=== PATIENT | female | born 1985 | race Caucasian/White ===

== ENCOUNTER → 2019-04-28 11:36 | Outpatient (CLI) | payer OTHER, SELFPAY ==
--- NOTE | 2019-04-28 11:39 | DI.US.S_ITS ---
PROCEDURE: US PELVIC COMPLETE INDICATIONS: RT ADNEXAL CYSTIC LESION ON MRI @ [facility] 04/12/19 TECHNIQUE: Real-time scanning was performed of the pelvic organs, with image documentation. Additional endovaginal scanning was necessary due to incomplete visualization of the adnexal and endometrial structures by transabdominal scanning. COMPARISON: None available at time of interpretation. FINDINGS: Transabdominal scanning: Limited scanning through the kidneys shows no hydronephrosis. No pathologic free abdominal or pelvic fluid. Endovaginal scanning: Uterus: Uterus is normal in size at 8.8 x 3.5 x 4.9 cm. The endometrium measures 4.2 mm in combined thickness. Ovaries: Normal left ovary measured 3.5 x 2.3 x 2.3 cm. Simple cyst involving the right ovary, largest measuring 4.1 x 1.6 x 2.6 cm which is simple. IMPRESSION: Simple right ovarian cysts, largest measuring up to 4.1 cm. Dictated by: Beau Ovalle [facility] Interpreted: Malina Negrete MD on 04/28/2019 at 12:47 Approved by: Malina Negrete M.D. on 04/28/2019 at 14:46
[2019-04-28 13:54] LABS: Cancer Antigen 125 < 6 U/mL (0-35)
== END ==
PROVIDERS: Visit Provider Obstetrics & Gynecology
DX: N83.291 Other ovarian cyst, right side (principal)
CPT/HCPCS: 36415; 76830; 76856; 86304

== ENCOUNTER 2019-05-23 10:34 | Day surgery (SDC) | payer OTHER, SELFPAY ==
[2019-05-23] VITALS (7 sets, daily range): BP systolic 116–135; BP diastolic 72–83; PULSE 46–77; RESP 12–18; TEMP 36.3–36.6; O2SAT 99–100; BMI 24.4
[2019-05-23] MEDS: LACTATED RINGERS 1,000 ML 100 ML IV (11:03)
--- NOTE | 2019-05-23 12:00 | PM.PREOP ---
Pre-operative Note Interval Note History & Physical reviewed/Exam performed by Physician: Yes Changes to H&P: No
--- NOTE | 2019-05-23 12:01 | PM.HP.1 ---
History of Present Illness Date Patient Seen: 05/23/19 Time Patient Seen: 12:01 Chief complaint: [id number] Narrative: Patient is a 34-year-old with a symptomatic right ovarian cyst here for a laparoscopic right ovarian cystectomy Patient History Medical History (Updated 05/12/19 @ 07:20 by Andree Lemus RN) Ovarian cyst (Acute) Surgical History (Updated 05/18/19 @ 12:38 by Andree Lemus RN) History of section (Acute) Social History household members: spouse Smoking Status: Never smoker Family & Social History Social History: household members spouse Tobacco & Substance use: Smoking Status Never smoker Meds Home Medications Medication Instructions Recorded Confirmed Type acetaminophen 500 mg tablet 1,000 mg PO Q6H PRN 05/10/19 05/12/19 History ascorbate calcium (vitamin C) 500 1 gram PO Q6H 05/10/19 05/12/19 History mg tablet buspirone 30 mg tablet 35 mg PO DIRECTED tab 05/10/19 05/23/19 History ibuprofen 800 mg tablet 800 mg PO TID 05/10/19 05/12/19 History levonorgestrel-ethinyl estradiol 1 tab PO DAILY 05/10/19 05/23/19 History 0.1 mg-20 mcg tablet omega 6-pfw-qfo-fish oil 1,000 mg 1 cap PO DAILY 05/10/19 05/12/19 History (120 mg-180 mg) capsule sertraline 50 mg tablet 50 mg PO DAILY 05/10/19 05/23/19 History terbinafine 250 mg oral each MISC 05/10/19 05/10/19 History tablet-hydroxypropyl chitosan 1 % topical kit Allergies Allergy/AdvReac Type Severity Reaction Status Date / Time No Known Drug Allergies Allergy Unverified 05/10/19 15:22 Exam Vital Signs (past 8 hours): - 05/23/19 10:48 Temperature 97.6 F Pulse Rate 46 L Respiratory Rate 16 Blood Pressure 133/72 Pulse Oximetry 100 Oxygen Delivery Method Room Air Narrative Exam Narrative: HEENT: [No thyromegaly, no anterior cervical or supraclavicular lymphadenopathy.] Lungs:[Clear to auscultation bilaterally, no wheezes.] Cardiovascular: [Regular rate and rhythm, no murmurs, rubs, or gallops]. Abdomen: [No scars. No hepatosplenomegaly. No masses palpable.] External genitalia: [Normal] Vagina: [Normal] Cervix: [Normal] Bimanual exam: 6 Week size uterus. Mobile. Rectal: [No masses]. Ultrasound: 4 cm right ovarian cyst Assessment & Plan Assessment & Plan narrative: Assessment: 34-year-old with a symptomatic right ovarian cyst Plan: Laparoscopic right ovarian cystectomy The risks, benefits, and alternatives to the procedure were explained to the patient. The risks including bleeding, infection, injury to the bowel, bladder, or ureters. She understands these risks and agrees to proceed. A full par Q was held and consent form was signed. Time Spent With Patient Time with patient: 15-24 minutes
--- NOTE | 2019-05-23 12:45 | SUR.OPER ---
Lithotomy on padded OR bed, head on pillow, arms secured on padded arm boards at <90 degrees abduction. Legs secured in padded yellow fins stirrups.
[2019-05-23] MEDS: BUPIVACAINE 0.5% W/ EPI (PF) VIAL 10 ML INJ (12:48)
--- NOTE | 2019-05-23 13:16 | PATH_ITS ---
Note [facility] Accession Number: [id number] TESTS RESULT FLAG UNITS REF RANGE LAB Clinician Provided Cytology Information No. of containers..01 ThinPrep Vial R OVARIAN CYST DIAGNOSIS: R OVARIAN CYST NEGATIVE FOR MALIGNANT CELLS. COMMENT: The cytological preparation and cell block have scattered clusters of cytolgically bland epitheliod cells in a background of blood. There are no features of a malignant neoplasm; however, a low-grade neoplasm cannot be entirely excluded. As part of routine quality supervisor, Dr. Tai has also reviewed this case and agrees with the above interpreation. Pathologist ICD10: 02 N83.201 02 Bg Marrero MD, PhD, Pathologist NPI- [id number] Musa Jewell, Newspaper Photojournalist ([facility]) 01 3 CC, PINK, CLOUDY /LCS FLAG LEGEND: L-Low Normal,H-High Normal,LL-Alert Low,HH-Alert High <-Panic Low,>-Panic High,A-Abnormal,AA-Critical Abnormal Performed at: 01 =Z [facility] [address], [place] [address] Prem Adamson MD, 02 LCL[facility] [address] [place] [id number] Hamida Tai MD, Performed at: 01 [facility] [address], [place], [place] [id number] MD Prem Adamson MD Phone: [phone]
[2019-05-23] MEDS: OXYCODONE/ACETAMINOPHEN 5/325 TABLET 1 TAB PO (13:32)
--- NOTE | 2019-05-23 14:00 | SUR.PHASEII ---
Assumed care, patient stable, denies pain/nausea. Tolerating PO well. Waiting for mother to return w/medication. IV site WNL.
--- NOTE | 2019-05-23 14:34 | SUR.PHASEII ---
1422 Stable for discharge, no questions, no pain/nausea; Stable on feet. Resp unlabored, Skin warm and dry.
--- NOTE | 2019-05-30 05:48 | PM.GYNOP.1 ---
Operative Date/Time/Diagnoses Date of procedure: 05/23/19 Time of procedure: 13:00 Pre-op diagnosis: Persistent right ovarian cyst Pelvic pain Post-op diagnosis: same Procedure: Procedures Operation Date: 05/23/19 11:45 Actual Procedures Side Surgeon p Laparoscopic Lysis of adhesions; aspiration of right ovarian cyst Right Jacqui Gallagher MD Indications: Persistent right ovarian cyst Pelvic Surgeon: Jacqui Gallagher Anesthesia Type: General Operative Notes Findings: Bladder to uterine adhesions Uterus to anterior abdominal wall adhesions 4 cm right ovarian cyst Normal appendix, gallbladder, liver, and tubes Normal left ovary Closure Type: primary Specimen(s): none Estimated blood loss (mL): 5 Blood products transfused: none Procedure in detail: After informed consent was obtained, the patient was taken to the operating room where she was placed in the dorsal supine position. After adequate general endotracheal anesthesia was achieved, she was placed in the dorsal lithotomy position, and prepped and draped in the usual sterile fashion. A time-out was performed. A bivalve speculum was placed into the vagina and the anterior lip of the cervix grasped with a single-tooth tenaculum. The cervical os was sequentially dilated until the Zumi uterine manipulator could pass easily into the endometrial cavity. The single-tooth tenaculum was removed from the anterior lip of the cervix. The bivalve speculum was removed from the vagina. Attention was then turned to the abdomen where 6 cc of 0.5% Marcaine with epinephrine were injected in the umbilical fold. A 5 mm incision was made. The Veress needle was placed into the peritoneal cavity, and its placement confirmed by aspiration and drop test. The abdominal cavity was insufflated with 3.8 L of CO2. The Veress needle was removed, and a 5 mm trocar was placed without difficulty. Two other incisions were made after 6 cc of 0.5% Marcaine with epinephrine were injected. The 1st 1 was above the pubic symphysis and the 2nd 1 was midway between the pubic symphysis and umbilicus 4 cm lateral to the midline on the left side. Two 5 mm trocars were placed under direct visualization. The bladder to uterine adhesions were taken down with the Endo Jesus. The uterine to anterior abdominal wall adhesions were taken down with the PlasmaKinetic. The right utero-ovarian ligament was grasped with an atraumatic grasper. The point aspirated her was placed into the right ovarian cyst and approximately 10 cc of clear yellow fluid were removed. The cyst was cauterized with the PlasmaKinetic for hemostasis. The appendix, gallbladder, liver, and fallopian tubes were found to be normal. The left ovary was also found to be normal. The instruments were removed from the abdomen. The CO2 was allowed to escape. The incisions were repaired with 4 0 undyed Vicryl in a subcuticular fashion. Steri-Strips, 2 x 2, and op site were placed. The Zumi uterine manipulator was removed from the uterus. Sponge, lap, and instrument counts were correct x2. The patient tolerated the procedure well, and was taken to PACU in stable condition. Complications: none Post-operative Condition: stable Disposition: PACU Plan for aftercare: Home after recovery
== END 2019-05-23 14:22 | disposition home or self-care (01) ==
PROVIDERS: PCP Family Medicine; Visit Provider Obstetrics & Gynecology
PROC: (CPT 58662; principal; 2019-05-23 11:45)
DX: N83.201 Unspecified ovarian cyst, right side (principal)
CPT/HCPCS: 49322; J1100; J1610; J1885; J2250; J2405; J2704; J3010

== ENCOUNTER → 2019-12-13 10:59 | Outpatient (CLI) | payer OTHER, SELFPAY ==
[2019-12-13 11:57] LABS: Add Manual Diff / Slide Review NO; Basophils Absolute Auto 100 /uL (0-100); Basophils Percent Auto 0.6 % (0-2); Eosinophils Absolute Auto 100 /uL (0-450); Eosinophils Percent Auto 0.8 % (2-4); Hematocrit 38.8 % (36-46); Lymphocytes Absolute Auto 1700 /uL (1100-4500); Lymphocytes Percent Auto 17.8 % (25-40); Mean Corpuscular Volume 88.9 fL (80-100); Monocytes Absolute Auto 600 /uL (0-900); Monocytes Percent Auto 6.2 % (3-14); Neutrophils Absolute Auto 7000 /uL (1500-7000); Neutrophils Percent Auto 74.6 % (50-75); Platelet Count 210 X10^3/uL (150-400); Red Blood Cell Count 4.37 X10^6/uL (4.0-5.2); Red Cell Distribution Width 13.6 % (11.6-14.8); White Blood Cell Count 9.3 X10^3/uL (4.5-11.0)
[2019-12-13 12:01] LABS: Appearance Urine UA CLEAR; Bilirubin Urine UA NEGATIVE (NEGATIVE); Color Urine UA YELLOW; Glucose Urine UA NEGATIVE (Negative); Ketones Urine UA NEGATIVE (NEGATIVE); Leukocyte Esterase Urine UA NEGATIVE (NEGATIVE); Nitrite Urine UA NEGATIVE (Negative); Occult Blood Urine UA NEGATIVE (Negative); Protein Urine UA NEGATIVE (Negative); Specific Gravity Urine UA <=1.005 (1.000-1.035); Urobilinogen Urine UA 0.2 E.U./dL (0.2)
[2019-12-13 12:42] LABS: Free T4, Direct Thyroxine 0.89 ng/dL (0.78-2.19)
[2019-12-13 15:23] LABS: Hepatitis B Surface Antigen NEGATIVE s/c (NEGATIVE); Rubella Antibody IgG 24.9 IU/mL (>15)
[2019-12-13 15:42] LABS: HIV 1 & 2 Ab/Ag 4th Gen Combo NEGATIVE (NEGATIVE); Hep C Virus Ab w/Reflex Quant NEGATIVE s/c (NEGATIVE)
[2019-12-14 18:24] LABS: RPR Screen Nonreactive (Nonreactive)
== END ==
PROVIDERS: PCP Family Medicine; Visit Provider Specialist
DX: Z34.81 Encounter for supervision of other normal pregnancy, first trimester (principal)
CPT/HCPCS: 36415; 80055; 81003; 84439; 84443; 86787; 86803; 86850; 86900; 86901; 87086; 87389